=== PATIENT | female | born 1990 | race Caucasian/White ===

== ENCOUNTER 2019-01-27 06:29 | Emergency (ER) | payer BC ==
--- NOTE | 2019-01-27 06:39 | EDM.PDOC ---
ED HPI GENERAL MEDICAL PROBLEM - General Chief Complaint: ENT Problem Stated Complaint: SORE THROAT, FACIAL PAIN Time Seen by Provider: 01/27/19 06:37 - History of Present Illness INITIAL COMMENTS - FREE TEXT/NARRATIVE: HISTORY AND PHYSICAL: History of present illness: Patient's 28-year-old female presents with a concern of cough sore throat and ear pain or less of days she denies fever chills nausea or other complaints Review of systems: As per history of present illness and below otherwise all systems reviewed and negative. Past medical history: As per history of present illness and as reviewed below otherwise noncontributory. Surgical history: As per history of present illness and as reviewed below otherwise noncontributory. Social history: No reported history of drug or alcohol abuse. Family history: As per history of present illness and as reviewed below otherwise noncontributory. Physical exam: HEENT: Atraumatic, normocephalic, pupils reactive, negative for conjunctival pallor or scleral icterus, mucous membranes moist, throat injected with pustular exudates, neck supple, nontender, trachea midline. Lungs: Clear to auscultation, breath sounds equal bilaterally, chest nontender. Heart: S1S2, regular, negative for clicks, rubs, or JVD. Abdomen: Soft, nondistended, nontender. Negative for masses or hepatosplenomegaly. Negative for costovertebral tenderness. Pelvis: Stable nontender. Genitourinary: Deferred. Rectal: Deferred. Extremities: Atraumatic, negative for cords or calf pain. Neurovascular unremarkable. Neuro: Awake, alert, oriented. Cranial nerves II through XII unremarkable. Cerebellum unremarkable. Motor and sensory unremarkable throughout. Exam nonfocal. Diagnostics: None Therapeutics: None Impression: #1 exudative pharyngitis #2 otalgia Definitive disposition and diagnosis as appropriate pending reevaluation and review of above. throat Pain Score (Numeric/FACES): 6 bilateral ears Pain Score (Numeric/FACES): 6 ED ROS GENERAL - Review of Systems Review Of Systems: Comprehensive ROS is negative, except as noted in HPI. ED EXAM, GENERAL - Physical Exam Exam: See Below (See dictation) Course - Vital Signs Last Recorded V/S: Last Vital Signs Temp 35.8 C 01/27/19 06:30 Pulse 85 01/27/19 06:30 Resp 17 01/27/19 06:30 BP 125/80 01/27/19 06:30 Pulse Ox 97 01/27/19 06:30 Departure - Departure Time of Disposition: 06:38 Disposition: Home, Self-Care 01 Condition: Good Clinical Impression: Exudative pharyngitis, Otalgia - Discharge Information Referrals: PCP,None [Primary Care Provider] - Additional Instructions: The following information is given to patients seen in the emergency department who are being discharged to home. This information is to outline your options for follow-up care. We provide all patients seen in our emergency department with a follow-up referral. The need for follow-up, as well as the timing and circumstances, are variable depending upon the specifics of your emergency department visit. If you don't have a primary care physician on staff, we will provide you with a referral. We always advise you to contact your personal physician following an emergency department visit to inform them of the circumstance of the visit and for follow-up with them and/or the need for any referrals to a consulting specialist. The emergency department will also refer you to a specialist when appropriate. This referral assures that you have the opportunity for followup care with a specialist. All of these measure are taken in an effort to provide you with optimal care, which includes your followup. Under all circumstances we always encourage you to contact your private physician who remains a resource for coordinating your care. When calling for followup care, please make the office aware that this follow-up is from your recent emergency room visit. If for any reason you are refused follow-up, please contact the [facility] emergency department at and asked to speak to the emergency department charge nurse. Augmentin is prescribed Motrin/Tylenol attractive follow-up primary medical doctor return as needed as discussed
== END 2019-01-27 06:51 | disposition home or self-care (01) ==
LOC: MW.ED 06:29
DX: J02.9 Acute pharyngitis, unspecified (principal); H92.03 Otalgia, bilateral
CPT/HCPCS: 99283

== ENCOUNTER 2020-01-26 13:46 | Emergency (ER) | payer BC ==
[2020-01-26 15:24] LABS: BLOOD UREA NITROGEN,BUN 7 mg/dL (7.0-18.0); CARBON DIOXIDE,CO2 25.1 mmol/L (21.0-32.0); CHLORIDE,CL 103 mmol/L (98-107); GLUCOSE RANDOM 93 mg/dL (74-106); POTASSIUM,K 4.1 mmol/L (3.5-5.1); SODIUM,NA 140 mmol/L (136-145)
--- NOTE | 2020-01-26 15:34 | CR ---
TECHNIQUE: Portable AP chest radiograph. INDICATION: Chest pain, shortness of breath. COMPARISON: None available. FINDINGS: Mildly reduced lung volumes with vascular crowding. No focal pulmonary opacity, pneumothorax, or pleural effusion. Normal cardiac and mediastinal contours. IMPRESSION: No acute cardiopulmonary findings. Dictated by Salvatore Farias MD @ 01/26/2020 3:33:33 PM Dictated by: Salvatore Farias MD @ 01/26/2020 15:33:44 (Electronically Signed)
--- NOTE | 2020-01-26 15:34 | EDM.PDOC ---
ED HPI GENERAL MEDICAL PROBLEM - General Chief Complaint: Skin Complaint Stated Complaint: RASH ON LEGS AND ARMS Time Seen by Provider: 01/26/20 13:47 Source of Information: Reports: Patient History Limitations: Reports: No Limitations - History of Present Illness INITIAL COMMENTS - FREE TEXT/NARRATIVE: HISTORY AND PHYSICAL: History of present illness: Is a 29-year-old female who presents to the emergency room today with concern of rash to her bilateral lower extremities and upper extremities that began x2 days ago. Patient states she also has a slight sore throat and vague cough but states that the rash is more bothersome to her. Patient states that the rash is painful to the touch. Patient states that she is also having "cramping "sensations of her calves. Patient states she describes this as a hard workout when you strain your calf muscles during exercise. Patient denies any trauma or injury. Patient states that she did recently find out that her significant other was not faithful but does not believe to have a sexually transmitted infection. Patient denies any vaginal discharge or any vaginal sores. Denies any health history of family history of autoimmune concerns. She did have a COVID19 infection a few weeks ago. Patient denies fever, chills, chest pain, shortness of breath, or cough. Denies headache, neck stiff ness, change in vision, syncope, or near syncope. Denies nausea, vomiting, abdominal pain, diarrhea, constipation, or dysuria. Has not noted any blood in urine or stool. Patient has been eating and drinking appropriately. Review of systems: As per history of present illness and below otherwise all systems reviewed and negative. Past medical history: As per history of present illness and as reviewed below otherwise noncontrib utory. Surgical history: As per history of present illness and as reviewed below otherwise noncontributory. Social history: See social history for further information Family history: As per history of present illness and as reviewed below otherwise noncontributory. Physical exam: General: Patient is alert, oriented, and in no acute distress. Patient sitting comfortably on exam table. HEENT: Atraumatic, normocephalic, pupils equal and reactive bilaterally, negative for conjunctival pallor or scleral icterus, mucous membranes moist, TMs normal bilaterally, throat clear, uvula midline, neck supple, nontender, trachea midline. No drooling or trismus noted. No meningeal signs. No hot potato voice noted. Lungs: Clear to auscultation, breath sounds equal bilaterally, chest nontender. Heart: S1S2, regular rate and rhythm without overt murmur Abdomen: Soft, nondistended, nontender. Negative for masses or hepatosplenomegaly. Negative for costovertebral tenderness. Pelvis: Stable nontender. Genitourinary: Deferred. Rectal: Deferred. Skin: There are tender erythematous nodules that a firm, erythematous, painful, and warm to the touch on the bilateral lower extremities and forearms. This rash does involve the palmar aspect of the hands and feet. Otherwise, intact, warm, dry. No lesions or rashes noted. Extremities: Atraumatic, negative for cords or calf pain. Neurovascular unremarkable. Neuro: Awake, alert, oriented. Cranial nerves II through XII unremarkable. Cerebellum unremarkable. Motor and sensory unremarkable throughout. Exam nonfocal. Notes: Strict return precautions thoroughly discussed with patient. Signs and symptoms that would prompt return to the ED thoroughly discussed with patient. Discussed importance for follow-up with a primary care provider. Voices understanding and is agreeable to plan of care. Denies any further questions or concerns at this time. Diagnostics: CBC, CMP, UA, mono, strep, HIV, hepatitis panel, syphilis, Gonorrhea and chlamydia, HSV, lactate, Therapeutics: None Prescription: None Impression: Erythema nodosum Pharyngitis Plan: 1. Follow up with primary care provider as discussed. 2. Use ibuprofen as directed for pain and discomfort. You can also use Tylenol as directed for pain and discomfort. 3. Return to the ED as needed and as discussed. Definitive disposition and diagnosis as appropriate pending reevaluation and re view of above. Bilateral Lower Leg Pain Score (Numeric/FACES): 5 - Related Data Allergies Allergy/AdvReac Type Severity Reaction Status Date / Time No Known Allergies Allergy Verified 01/26/20 14:03 Home Meds: Home Meds . [No Known Home Meds] 01/27/19 [History] Past Medical History - Past Health History Medical/Surgical History: Denies Medical/Surgical History Gastrointestinal History: Reports: None Genitourinary History: Reports: None [employer] History: Reports: - Infectious Disease History Infectious Disease History: Reports: Chicken Pox - Past Surgical History GI Surgical History: Reports: Cholecystectomy Female Surgical History: Reports: Section Social & Family History - Family History Family Medical History: No Pertinent Family History - Tobacco Use Tobacco Use Status *Q: Never Tobacco User Second Hand Smoke Exposure: No - Caffeine Use Caffeine Use: Reports: None - Recreational Drug Use Recreational Drug Use: No ED ROS GENERAL - Review of Systems Review Of Systems: Comprehensive ROS is negative, except as noted in HPI. ED EXAM, SKIN/RASH Exam: See Below (see dictation) Course - Vital Signs Last Recorded V/S: Last Vital Signs Temp 97.9 F 01/26/20 16:33 Pulse 94 01/26/20 16:33 Resp 18 01/26/20 16:33 BP 105/69 01/26/20 16:33 Pulse Ox 98 01/26/20 16:33 - Orders/Labs/Meds Orders: Active Orders 24 hr Category Date Time Status CHLAMYDIA AND GONORRHEA BY TMA Stat Lab 01/26/20 14:28 Ordered CORONAVIRUS COVID-19 PCR PHL Stat Lab 01/26/20 14:29 Ordered CULTURE STREP A CONFIRMATION [RM] Stat Lab 01/26/20 15:15 Results HEPATITIS PANEL (4) [REF] Stat Lab 01/26/20 14:42 Received HSV, TYPES 1 & 2, IGM AB, IND [REF] Stat Lab 01/26/20 14:42 Received RPR (SYPHILIS SERO) W/ RFLX [REF] Stat Lab 01/26/20 14:42 Received STREP SCRN A RAPID W CULT CONF [RM] Stat Lab 01/26/20 15:15 Results TRICH/BRICE/CAND BY DNA PROBE [MOLEC] Stat Lab 01/26/20 14:29 Ordered Labs: Laboratory Tests 01/26/20 01/26/20 01/26/20 Range/Units 14:25 14:25 14:42 WBC 14.55 H (4.0-11.0) K/uL RBC 5.09 (4.30-5.90) M/uL Hgb 16.3 H (12.0-16.0) g/dL Hct 47.0 H (36.0-46.0) % MCV 92.3 (80.0-98.0) fL MCH 32.0 (27.0-32.0) pg MCHC 34.7 (31.0-37.0) g/dL RDW Std Deviation 45.1 (28.0-62.0) fl RDW Coeff of Khurram 13 (11.0-15.0) % Plt Count 295 (150-400) K/uL MPV 9.80 (7.40-12.00) fL Neut % (Auto) 70.1 (48.0-80.0) % Lymph % (Auto) 17.3 (16.0-40.0) % Maverick % (Auto) 11.1 (0.0-15.0) % Eos % (Auto) 1.2 (0.0-7.0) % Baso % (Auto) 0.3 (0.0-1.5) % Neut # (Auto) 10.2 H (1.4-5.7) K/uL Lymph # (Auto) 2.5 H (0.6-2.4) K/uL Maverick # (Auto) 1.6 H (0.0-0.8) K/uL Eos # (Auto) 0.2 (0.0-0.7) K/uL Baso # (Auto) 0.0 (0.0-0.1) K/uL Nucleated RBC % 0.0 /100WBC Nucleated RBCs # 0 K/uL Lactate (0.20-2.00) mmol/L Sodium (136-145) mmol/L Potassium (3.5-5.1) mmol/L Chloride (98-107) mmol/L Carbon Dioxide (21.0-32.0) mmol/L BUN (7.0-18.0) mg/dL Creatinine (0.6-1.0) mg/dL Est Cr Clr Drug Dosing mL/min Estimated GFR (MDRD) ml/min Glucose (74-106) mg/dL Calcium (8.5-10.1) mg/dL Total Bilirubin (0.2-1.0) mg/dL AST (15-37) IU/L ALT (14-63) IU/L Alkaline Phosphatase (46-116) U/L Creatine Kinase (26-308) U/L Total Protein (6.4-8.2) g/dL Albumin (3.4-5.0) g/dL Globulin (2.6-4.0) g/dL Albumin/Globulin Ratio (0.9-1.6) Urine Color YELLOW Urine Appearance CLEAR Urine pH 7.5 (5.0-8.0) Ur Specific Julian 1.025 (1.001-1.035) Urine Protein NEGATIVE (NEGATIVE) mg/dL Urine Glucose (UA) NEGATIVE (NEGATIVE) mg/dL Urine Ketones NEGATIVE (NEGATIVE) mg/dL Urine Occult Blood NEGATIVE (NEGATIVE) Urine Nitrite NEGATIVE (NEGATIVE) Urine Bilirubin NEGATIVE (NEGATIVE) Urine Urobilinogen 0.2 (<2.0) EU/dL Ur Leukocyte Esterase NEGATIVE (NEGATIVE) Urine HCG, Qual NEGATIVE (NEGATIVE) Monoscreen (NEG) HIV 1&2 Ag/Ab, 4th Gen (<1.0) INDEX 01/26/20 01/26/20 01/26/20 Range/Units 14:42 14:42 14:42 WBC (4.0-11.0) K/uL RBC (4.30-5.90) M/uL Hgb (12.0-16.0) g/dL Hct (36.0-46.0) % MCV (80.0-98.0) fL MCH (27.0-32.0) pg MCHC (31.0-37.0) g/dL RDW Std Deviation (28.0-62.0) fl RDW Coeff of Khurram (11.0-15.0) % Plt Count (150-400) K/uL MPV (7.40-12.00) fL Neut % (Auto) (48.0-80.0) % Lymph % (Auto) (16.0-40.0) % Maverick % (Auto) (0.0-15.0) % Eos % (Auto) (0.0-7.0) % Baso % (Auto) (0.0-1.5) % Neut # (Auto) (1.4-5.7) K/uL Lymph # (Auto) (0.6-2.4) K/uL Maverick # (Auto) (0.0-0.8) K/uL Eos # (Auto) (0.0-0.7) K/uL Baso # (Auto) (0.0-0.1) K/uL Nucleated RBC % /100WBC Nucleated RBCs # K/uL Lactate (0.20-2.00) mmol/L Sodium 140 (136-145) mmol/L Potassium 4.1 (3.5-5.1) mmol/L Chloride 103 (98-107) mmol/L Carbon Dioxide 25.1 (21.0-32.0) mmol/L BUN 7 (7.0-18.0) mg/dL Creatinine 0.7 (0.6-1.0) mg/dL Est Cr Clr Drug Dosing 105.74 mL/min Estimated GFR (MDRD) > 60.0 ml/min Glucose 93 (74-106) mg/dL Calcium 8.9 (8.5-10.1) mg/dL Total Bilirubin 0.4 (0.2-1.0) mg/dL AST 18 (15-37) IU/L ALT 39 (14-63) IU/L Alkaline Phosphatase 80 (46-116) U/L Creatine Kinase 78 (26-308) U/L Total Protein 7.8 (6.4-8.2) g/dL Albumin 3.5 (3.4-5.0) g/dL Globulin 4.3 H (2.6-4.0) g/dL Albumin/Globulin Ratio 0.8 L (0.9-1.6) Urine Color Urine Appearance Urine pH (5.0-8.0) Ur Specific Julian (1.001-1.035) Urine Protein (NEGATIVE) mg/dL Urine Glucose (UA) (NEGATIVE) mg/dL Urine Ketones (NEGATIVE) mg/dL Urine Occult Blood (NEGATIVE) Urine Nitrite (NEGATIVE) Urine Bilirubin (NEGATIVE) Urine Urobilinogen (<2.0) EU/dL Ur Leukocyte Esterase (NEGATIVE) Urine HCG, Qual (NEGATIVE) Monoscreen NEGATIVE (NEG) HIV 1&2 Ag/Ab, 4th Gen 0.2 (<1.0) INDEX 01/26/20 Range/Units 15:52 WBC (4.0-11.0) K/uL RBC (4.30-5.90) M/uL Hgb (12.0-16.0) g/dL Hct (36.0-46.0) % MCV (80.0-98.0) fL MCH (27.0-32.0) pg MCHC (31.0-37.0) g/dL RDW Std Deviation (28.0-62.0) fl RDW Coeff of Khurram (11.0-15.0) % Plt Count (150-400) K/uL MPV (7.40-12.00) fL Neut % (Auto) (48.0-80.0) % Lymph % (Auto) (16.0-40.0) % Maverick % (Auto) (0.0-15.0) % Eos % (Auto) (0.0-7.0) % Baso % (Auto) (0.0-1.5) % Neut # (Auto) (1.4-5.7) K/uL Lymph # (Auto) (0.6-2.4) K/uL Maverick # (Auto) (0.0-0.8) K/uL Eos # (Auto) (0.0-0.7) K/uL Baso # (Auto) (0.0-0.1) K/uL Nucleated RBC % /100WBC Nucleated RBCs # K/uL Lactate 1.3 (0.20-2.00) mmol/L Sodium (136-145) mmol/L Potassium (3.5-5.1) mmol/L Chloride (98-107) mmol/L Carbon Dioxide (21.0-32.0) mmol/L BUN (7.0-18.0) mg/dL Creatinine (0.6-1.0) mg/dL Est Cr Clr Drug Dosing mL/min Estimated GFR (MDRD) ml/min Glucose (74-106) mg/dL Calcium (8.5-10.1) mg/dL Total Bilirubin (0.2-1.0) mg/dL AST (15-37) IU/L ALT (14-63) IU/L Alkaline Phosphatase (46-116) U/L Creatine Kinase (26-308) U/L Total Protein (6.4-8.2) g/dL Albumin (3.4-5.0) g/dL Globulin (2.6-4.0) g/dL Albumin/Globulin Ratio (0.9-1.6) Urine Color Urine Appearance Urine pH (5.0-8.0) Ur Specific Julian (1.001-1.035) Urine Protein (NEGATIVE) mg/dL Urine Glucose (UA) (NEGATIVE) mg/dL Urine Ketones (NEGATIVE) mg/dL Urine Occult Blood (NEGATIVE) Urine Nitrite (NEGATIVE) Urine Bilirubin (NEGATIVE) Urine Urobilinogen (<2.0) EU/dL Ur Leukocyte Esterase (NEGATIVE) Urine HCG, Qual (NEGATIVE) Monoscreen (NEG) HIV 1&2 Ag/Ab, 4th Gen (<1.0) INDEX Departure - Departure Time of Disposition: 16:09 Disposition: Home, Self-Care 01 Clinical Impression: Erythema nodosum Pharyngitis Qualifiers: Pharyngitis/tonsillitis etiology: unspecified etiology Qualified Code(s): J02.9 - Acute pharyngitis, unspecified - Discharge Information Instructions: Erythema Nodosum, Pharyngitis, [id number] Referrals: PCP,None [Primary Care Provider] - Forms: ED Department Discharge Additional Instructions: The following information is given to patients seen in the emergency department who are being discharged to home. This information is to outline your options for follow-up care. We provide all patients seen in our emergency department with a follow-up referral. The need for follow-up, as well as the timing and circumstances, are variable depending upon the specifics of your emergency department visit. If you don't have a primary care physician on staff, we will provide you with a referral. We always advise you to contact your personal physician following an emergency department visit to inform them of the circumstance of the visit and for follow-up with them and/or the need for any referrals to a consulting specialist. The emergency department will also refer you to a specialist when appropriate. This referral assures that you have the opportunity for follow-up care with a specialist. All of these measure are taken in an effort to provide you with optimal care, which includes your follow-up. Under all circumstances we always encourage you to contact your private physician who remains a resource for coordinating your care. When calling for follow-up care, please make the office aware that this follow-up is from your recent emergency room visit. If for any reason you are refused follow-up, please contact the [facility] Emergency Department at and asked to speak to the emergency department charge nurse. [facility] [address] [place] [id number] [id number] 1. Follow up with primary care provider as discussed. 2. Use ibuprofen as directed for pain and discomfort. You can also use Tylenol as directed for pain and discomfort. 3. Return to the ED as needed and as discussed. Sepsis Event Note (ED) - Evaluation Sepsis Screening Result: No Definite Risk - Focused Exam Vital Signs: Vital Signs Temp Pulse Resp BP Pulse Ox 01/26/20 16:33 97.9 F 94 18 105/69 98 01/26/20 13:57 97.9 F 99 18 114/72 98 - My Orders Last 24 Hours: My Active Orders 01/26/20 14:28 CHLAMYDIA AND GONORRHEA BY TMA Stat 01/26/20 14:29 CORONAVIRUS COVID-19 PCR PHL Stat TRICH/BRICE/CAND BY DNA PROBE [MOLEC] Stat 01/26/20 14:42 HEPATITIS PANEL (4) [REF] Stat HSV, TYPES 1 & 2, IGM AB, IND [REF] Stat RPR (SYPHILIS SERO) W/ RFLX [REF] Stat 01/26/20 15:15 CULTURE STREP A CONFIRMATION [RM] Stat STREP SCRN A RAPID W CULT CONF [RM] Stat - Assessment/Plan Last 24 Hours: My Active Orders 01/26/20 14:28 CHLAMYDIA AND GONORRHEA BY TMA Stat 01/26/20 14:29 CORONAVIRUS COVID-19 PCR PHL Stat TRICH/BRICE/CAND BY DNA PROBE [MOLEC] Stat 01/26/20 14:42 HEPATITIS PANEL (4) [REF] Stat HSV, TYPES 1 & 2, IGM AB, IND [REF] Stat RPR (SYPHILIS SERO) W/ RFLX [REF] Stat 01/26/20 15:15 CULTURE STREP A CONFIRMATION [RM] Stat STREP SCRN A RAPID W CULT CONF [RM] Stat
== END 2020-01-26 16:30 | disposition home or self-care (01) ==
LOC: MW.ED 13:46
DX: L52 Erythema nodosum (principal); J02.9 Acute pharyngitis, unspecified
CPT/HCPCS: 36415; 71045; 71045-26; 80053; 80074; 81003; 81025; 82550; 83605; 85025; 86308; 86592; 86695; 86696; 87081; 87389; 87880-QW; 99283; 99283-25

== ENCOUNTER 2021-01-26 13:32 | Emergency (ER) | payer BC ==
[2021-01-26] MEDS ORDERED: Ketorolac 60 MG/2 ML SDV IM ONE (13:57)
--- NOTE | 2021-01-26 14:02 | EDM.PDOC ---
ED HPI GENERAL MEDICAL PROBLEM - General Chief Complaint: ENT Problem Stated Complaint: LEFT EAR PAIN Time Seen by Provider: 01/26/21 13:42 Source of Information: Reports: Patient History Limitations: Reports: No Limitations - History of Present Illness INITIAL COMMENTS - FREE TEXT/NARRATIVE: HISTORY AND PHYSICAL: History of present illness: The patient is a 30-year-old female who presents to the emergency department with complaints of left ear pain that started yesterday in the morning. Patient states that she took 1000 mg of Tylenol and was able to work yesterday. She stated this morning she got up again with ear pain and took 1000 mg of Tylenol at 830 and at 1230. The patient states this did not touch her ear pain. Patient has not had any fever but however she has had significant sinus drainage and sinus pressure for the last week. Patient has been sneezing and associates this with her allergies. Patient denies any fever, chills, headache, change in vision, syncope or near syncope. Denies any chest pain, back pain, shortness of breath or cough. Denies any abdominal pain, nausea, vomiting, diarrhea, constipation or dysuria. Has not noted any blood in urine or stool. Patient has been eating and drinking appropriately. Review of systems: As per history of present illness and below otherwise all systems reviewed and negative. Past medical history: As per history of present illness and as reviewed below otherwise noncontributory. Surgical history: As per history of present illness and as reviewed below otherwise noncontributory. Social history: See social history for further information Family history: As per history of present illness and as reviewed below otherwise noncontributory. Physical exam: General: Well developed and well nourished. Alert and orientated x 3. Nontoxic in appearance and in no acute distress. Vital signs are stable and have been reviewed by me. Nursing notes were reviewed. HEENT: Atraumatic, normocephalic, pupils equal and reactive bilaterally, negative for conjunctival pallor or scleral icterus, mucous membranes moist, TM white and bulging, left TM red and white with bulging, throat clear, neck supple, nontender, trachea midline. No drooling or trismus noted. No meningeal signs. No hot potato voice noted. Lungs: Clear to auscultation bilaterally. No wheezes, rales, or rhonchi. Chest nontender. Normal work of breathing, no accessory muscles used. Heart: S1S2, regular rate and rhythm without overt murmur, gallops, or rubs. No JVD. No peripheral edema Abdomen: Soft, nondistended, nontender. Normoactive bowel sounds. Negative for masses or costovertebral tenderness. Skin: Intact, warm, dry. No lesions or rashes noted. Hematologic: No petechiae or purpra. Mucosa appropriate color and normal nail bed color and refill. Extremities: Atraumatic, moves all extremities per self without difficulty or deficits, negative for cords or calf pain. Neurovascular unremarkable. Neuro: Awake, alert, oriented. Cranial nerves II through XII unremarkable. Cerebellum unremarkable. Motor and sensory unremarkable throughout. Exam nonfocal. Psychiatric: Mood and affect are appropriate. Normal thought process. Answering questions appropriately. Notes: *This patient was seen and evaluated during the 2019 SARS-CoV-2 novel coronavirus pandemic period. Community viral transmission is ongoing at time of this encounter and the emergency department is operating under pandemic response procedures. As stated above the patient is a 30-year-old who presents to the emergency with left ear pain. Patient was able to control the pain yesterday with gauze and milligrams of Tylenol but after 2 doses today she was unable to control the pain. The patient has some scarring on her tympanic membranes from frequent ear infections when she was younger. Based upon her exam I will treat her ear infection with Augmentin 875/125 mg p.o. twice daily for 7 days. We will treat her discomfort with Toradol 60 mg in the emergency department the patient is agreeable with this discharge plan. I have talked with the patient about today's findings, in addition to providing specific details for plan of care. Reassessment at the time of disposition demonstrates that the patient is in no acute distress. The patient is stable for discharge, counseling was provided and we discussed in great detail signs and symptoms that would prompt them to return to the Emergency Department. Medication, follow up and supportive care measures were reviewed and discussed. Voices understanding and is agreeable to plan of care. Denies any further questions or concerns at this time. Therapeutics: Toradol 60 mg Prescription:Augmentin 875/125 mg by mouth twice a day for 7 days Impression: Left otitis media Plan: 1. You were evaluated today on an emergent basis. Your plaints of left ear pain was evaluated with an exam and found to be an ear infection. I am treating this with Augmentin 875/125 mg by mouth twice a day for 7 days. I have sent this to and pharmacy. I would follow-up with your primary care as needed to ensure that the ear infection has resolved. You can use Motrin 600 to 800 mg every 6-8 hours as needed for pain with a maximum dose of 3200mg per day. 2. You can alternate Tylenol and ibuprofen as needed for pain and fever management. 3. We encourage you to follow up with your primary care provider and/or recommended specialist in the next few days for re-evaluation and further care/management. 4. If your symptoms should worsen, new symptoms develop or any of the signs and symptoms we discussed should arise please return to the emergency room or call 911 (if needed). Definitive disposition and diagnosis as appropriate pending reevaluation and review of above. Left Face/Facial Pain Score (Numeric/FACES): 9 - Related Data Allergies Allergy/AdvReac Type Severity Reaction Status Date / Time No Known Allergies Allergy Verified 01/26/21 13:46 Home Meds: Home Meds Amoxicillin/Potassium Clav [Augmentin 875-125 Tablet] 1 each PO BID 7 Days #14 tablet 01/26/21 [Rx] Past Medical History - Past Health History Medical/Surgical History: Denies Medical/Surgical History Gastrointestinal History: Reports: None Genitourinary History: Reports: None [employer] History: Reports: Immunologic History: Reports: Other (See Below) - Infectious Disease History Infectious Disease History: Reports: Chicken Pox, Novel Coronavirus - Past Surgical History HEENT Surgical History: Reports: Myringotomy w Tube(s) Other HEENT Surgeries/Procedures: Pt states that tube in right ear had to be surgically removed GI Surgical History: Reports: Cholecystectomy Female Surgical History: Reports: Section Social & Family History - Family History Family Medical History: No Pertinent Family History - Tobacco Use Tobacco Use Status *Q: Current Every Day Tobacco User Years of Tobacco use: 10 Packs/Tins Daily: 1 - Caffeine Use Caffeine Use: Reports: Coffee - Recreational Drug Use Recreational Drug Use: No ED ROS ENT - Review of Systems Review Of Systems: Comprehensive ROS is negative, except as noted in HPI. ED EXAM, ENT - Physical Exam Exam: See Below (See dictation) Course - Vital Signs Last Recorded V/S: Last Vital Signs Temp 97.2 F 01/26/21 13:41 Pulse 88 01/26/21 14:12 Resp 18 01/26/21 14:12 BP 117/77 01/26/21 14:12 Pulse Ox 95 01/26/21 14:12 - Orders/Labs/Meds Meds: Medications Discontinued Medications Generic Name Dose Route Start Last Admin Trade Name Freq PRN Reason Stop Dose Admin Ketorolac Tromethamine 60 mg 01/26/21 13:57 01/26/21 14:08 Ketorolac 60 Mg/2 Ml Sdv IM 01/26/21 13:58 60 mg ONETIME ONE Administration Departure - Departure Time of Disposition: 14:01 Disposition: Home, Self-Care 01 Condition: Good Clinical Impression: Otitis media - Discharge Information Prescriptions: Amoxicillin/Potassium Clav [Augmentin 875-125 Tablet] 1 each PO BID 7 Days #14 tablet Instructions: Otitis Media, Adult, [id number] Referrals: PCP,None [Primary Care Provider] - Forms: ED Department Discharge Additional Instructions: The following information is given to patients seen in the emergency department who are being discharged to home. This information is to outline your options for follow-up care. We provide all patients seen in our emergency department with a follow-up referral. The need for follow-up, as well as the timing and circumstances, are variable depending upon the specifics of your emergency department visit. If you don't have a primary care physician on staff, we will provide you with a referral. We always advise you to contact your personal physician following an emergency department visit to inform them of the circumstance of the visit and for follow-up with them and/or the need for any referrals to a consulting specialist. The emergency department will also refer you to a specialist when appropriate. This referral assures that you have the opportunity for follow-up care with a specialist. All of these measure are taken in an effort to provide you with optimal care, which includes your follow-up. Under all circumstances we always encourage you to contact your private physician who remains a resource for coordinating your care. When calling for follow-up care, please make the office aware that this follow-up is from your recent emergency room visit. If for any reason you are refused follow-up, please contact the [facility] Emergency Department at and asked to speak to the emergency department charge nurse. [facility] [address] [place] [address] [facility] [address] [place] [address] Plan: 1. You were evaluated today on an emergent basis. Your plaints of left ear pain was evaluated with an exam and found to be an ear infection. I am treating this with Augmentin 875/125 mg by mouth twice a day for 7 days. I have sent this to and pharmacy. I would follow-up with your primary care as needed to ensure that the ear infection has resolved. You can use Motrin 600 to 800 mg every 6-8 hours as needed for pain with a maximum dose of 3200mg per day. 2. You can alternate Tylenol and ibuprofen as needed for pain and fever management. 3. We encourage you to follow up with your primary care provider and/or recommended specialist in the next few days for re-evaluation and further care/management. 4. If your symptoms should worsen, new symptoms develop or any of the signs and symptoms we discussed should arise please return to the emergency room or call 911 (if needed). Sepsis Event Note (ED) - Evaluation Sepsis Screening Result: No Definite Risk - Focused Exam Vital Signs: Vital Signs Temp Pulse Resp BP Pulse Ox 01/26/21 14:12 88 18 117/77 95 01/26/21 13:41 97.2 F 87 18 110/74 96
== END 2021-01-26 14:13 | disposition home or self-care (01) ==
LOC: MW.ED 13:32
DX: H66.92 Otitis media, unspecified, left ear (principal); Z86.16 Personal history of COVID-19; Z72.0 Tobacco use
CPT/HCPCS: 96372; 99282; J1885

== ENCOUNTER 2021-06-19 13:40 | Emergency (ER) | payer BC ==
[2021-06-19 15:17] LABS: BLOOD UREA NITROGEN,BUN 9 mg/dL (7.0-18.0); CARBON DIOXIDE,CO2 22.2 mmol/L (21.0-32.0); CHLORIDE,CL 104 mmol/L (98-107); GLUCOSE RANDOM 91 mg/dL (74-106); LIPASE 82 U/L (73-393); SODIUM,NA 138 mmol/L (136-145)
== END 2021-06-19 15:52 | disposition home or self-care (01) ==
LOC: MW.ED 13:40
DX: R10.31 Right lower quadrant pain (principal); I88.0 Nonspecific mesenteric lymphadenitis; Z86.16 Personal history of COVID-19; Z90.49 Acquired absence of other specified parts of digestive tract
CPT/HCPCS: 36415; 80053; 81003; 81025; 83690; 85025; 99283; 99284

== ENCOUNTER 2021-08-27 17:07 | Emergency (ER) | payer BC ==
[2021-08-27] MEDS ORDERED: Acetaminophen 325 MG Tab PO ONE (17:29)
[2021-08-27] MEDS ORDERED: Ibuprofen 600 MG Tab PO ONE (17:29)
[2021-08-27] MEDS ORDERED: Sodium Chloride 0.9% 10 ML Syringe FLUSH PRN ×2 (17:45→18:43)
[2021-08-27] MEDS ORDERED: Sodium Chloride 0.9% 2.5 ML Syringe FLUSH PRN ×2 (17:45→18:43)
[2021-08-27] MEDS ORDERED: Sodium Chloride 0.9% 1,000 ML IV ONE (17:45)
[2021-08-27] MEDS ORDERED: Ketorolac 30 MG/ML SDV IVPUSH ONE (17:46)
[2021-08-27] MEDS ORDERED: cefTRIAXone 2 GM in Sodium Chloride 0.9% 100 ML IV ONE (18:13)
[2021-08-27] MEDS ORDERED: cefTRIAXone 1 GM in Sodium Chloride 0.9% 50 ML IV ONE ×2 (18:40→18:41)
[2021-08-27 19:25] LABS: POTASSIUM,K 3.6 mmol/L (3.5-5.1)
== END 2021-08-27 20:24 | disposition home or self-care (01) ==
LOC: MW.ED 17:07
DX: N39.0 Urinary tract infection, site not specified (principal); Z20.822 Contact with and (suspected) exposure to COVID-19
CPT/HCPCS: 36415; 71046; 74176; 80053; 81001; 81025; 83605; 85025; 87040; 87086; 87088; 87186; 87635; 87651; 96361; 96365; 96375; 99284; A9270; J0696; J1885; J7030; U0002

== ENCOUNTER 2021-10-17 12:38 | Emergency (ER) | payer BC ==
[2021-10-17 14:07] LABS: CARBON DIOXIDE,CO2 24.5 mmol/L (21.0-32.0); POTASSIUM,K 4.1 mmol/L (3.5-5.1)
== END 2021-10-17 16:05 | disposition home or self-care (01) ==
LOC: MW.ED 12:38
DX: K59.00 Constipation, unspecified (principal); E03.9 Hypothyroidism, unspecified; Z79.899 Other long term (current) drug therapy; Z86.16 Personal history of COVID-19
CPT/HCPCS: 36415; 74176; 74176-26; 80053; 81003; 83690; 84703; 85025; 99283; 99284

== ENCOUNTER 2022-08-01 14:23 | Observation (INO) | payer OTHER ==
[2022-08-01] MEDS ORDERED: Sodium Chloride 0.9% 2.5 ML Syringe FLUSH PRN (14:27)
[2022-08-01] MEDS ORDERED: Sodium Chloride 0.9% 1,000 ML IV ONE (14:27)
[2022-08-01] MEDS ORDERED: Ondansetron 4 MG/2 ML SDV IVPUSH ONE (14:27)
[2022-08-01] MEDS ORDERED: Sodium Chloride 0.9% 10 ML Syringe FLUSH PRN (14:27)
[2022-08-01] MEDS ORDERED: fentaNYL 50 MCG/ML SDV IVPUSH ONE (14:27)
[2022-08-01] MEDS ORDERED: fentaNYL 100 MCG/2 ML SDV ONE (14:28)
[2022-08-01] MEDS ORDERED: Diphtheria,Pertussis(Acell),Tetanus Vaccine 0.5 ML Syringe IM ONE (14:28)
[2022-08-01] MEDS ORDERED: Ondansetron 4 MG/2 ML SDV ONE (14:28)
[2022-08-01] MEDS ORDERED: Bacitracin Oint 1 GM U/D Packet TOP ONE (14:30)
[2022-08-01 14:35] LABS: BASOPHILS PERCENT AUTO 0.1 % (0.0-1.5); EOSINOPHILS ABSOLUTE AUTO 0.2 K/uL (0.0-0.7); EOSINOPHILS PERCENT AUTO 1.1 % (0.0-7.0); HEMATOCRIT 44.8 % (36.0-46.0); HEMOGLOBIN 15.9 g/dL (12.0-16.0); LYMPHOCYTES ABSOLUTE AUTO 2.1 K/uL (0.6-2.4); LYMPHOCYTES PERCENT AUTO 14.4 % (16.0-40.0); MEAN CORPUSCULAR HEMOGLOBIN 32.8 pg (27.0-32.0); MEAN CORPUSCULAR HGB CONC 35.5 g/dL (31.0-37.0); MEAN CORPUSCULAR VOLUME 92.4 fL (80.0-98.0); MONOCYTES PERCENT AUTO 6.7 % (0.0-15.0); NEUTROPHILS ABSOLUTE AUTO 11.1 K/uL (1.4-5.7); NEUTROPHILS PERCENT AUTO 77.7 % (48.0-80.0); NRBC ABSOLUTE 0 K/uL; PLATELET COUNT,PLT 267 K/uL (150-400); RED BLOOD CELL COUNT 4.85 M/uL (4.30-5.90); WHITE BLOOD CELL COUNT,WBC 14.26 K/uL (4.0-11.0)
[2022-08-01 14:55] LABS: ALANINE AMINOTRANSFERASE,ALT 38 IU/L (14-63); ALBUMIN 3.7 g/dL (3.4-5.0); ALKALINE PHOSPHATASE 60 U/L (46-116); ASPARTATE AMNIOTRANSFERASE,AST 37 IU/L (15-37); BILIRUBIN TOTAL 0.6 mg/dL (0.2-1.0); BLOOD UREA NITROGEN,BUN 9 mg/dL (7.0-18.0); CALCIUM 8.7 mg/dL (8.5-10.1); CARBON DIOXIDE,CO2 21.7 mmol/L (21.0-32.0); CHLORIDE,CL 100 mmol/L (98-107); CREATININE 0.7 mg/dL (0.6-1.0); GLUCOSE RANDOM 101 mg/dL (74-106); LIPASE 63 U/L (73-393); MAGNESIUM 1.6 mg/dL (1.8-2.4); POTASSIUM,K 4.4 mmol/L (3.5-5.1); PROTEIN TOTAL,TP 7.3 g/dL (6.4-8.2); SODIUM,NA 135 mmol/L (136-145)
[2022-08-01] MEDS ORDERED: Bacitracin Oint 28.35 GM Tube TOP STA (14:57)
[2022-08-01 14:58] LABS: ESTIMATED GFR 118 mL/min (>60); ETHANOL BLOOD MEDICAL < 3.0 mg/dL
[2022-08-01] MEDS ORDERED: Iopamidol 755 MG/ML 500 ML Multipack Bottle IVPUSH STA (15:11)
[2022-08-01] MEDS ORDERED: HYDROmorphone 1 MG/ML Syringe IVPUSH ONE ×2 (15:42→17:09)
[2022-08-01] MEDS ORDERED: Ketorolac 30 MG/ML SDV IVPUSH ONE (17:09)
[2022-08-01] MEDS ORDERED: Acetaminophen 1,000 MG in Premix Bag 1 BAG IV PRN (18:09)
[2022-08-01] MEDS ORDERED: Ondansetron 4 MG/2 ML SDV IVPUSH PRN (18:09)
[2022-08-01] MEDS ORDERED: Cyclobenzaprine 5 MG Tab PO PRN (18:09)
[2022-08-01] MEDS ORDERED: HYDROmorphone 2 MG/ML Syringe IVPUSH PRN (18:09)
[2022-08-01] MEDS: Lactated Ringers 1,000 ML IV SCH (18:57)
[2022-08-01] MEDS: Acetaminophen 1,000 MG in Premix Bag 1 BAG IV SCH (19:14)
[2022-08-01] MEDS: oxyCODONE 5 MG Tab PO PRN (20:39)
[2022-08-01] MEDS: Bacitracin/Neomycin/Polymyxin B Oint 28.4 GM Tube TOP SCH (21:59)
[2022-08-01 23:18] LABS: APPEARANCE,URINE CLEAR; BILIRUBIN,URINE NEGATIVE (NEGATIVE); COLOR,URINE YELLOW; GLUCOSE,URINE NEGATIVE (NEGATIVE); KETONES,URINE 15 mg/dL (NEGATIVE); LEUKOCYTE ESTERASE,URINE NEGATIVE (NEGATIVE); NITRITE,URINE NEGATIVE (NEGATIVE); OCCULT BLOOD,URINE NEGATIVE (NEGATIVE); PH,URINE 5.5 (5.0-8.0); PROTEIN,URINE TRACE mg/dL (NEGATIVE); UROBILINOGEN,URINE 0.2 EU/dL (<2.0)
[2022-08-01 23:28] LABS: AMPHETAMINES SCREEN, URINE PRESUMPTIVE POSITIVE (CUTOFF=500); BARBITURATE SCREEN,URINE NEGATIVE (CUTOFF=200); BENZODIAZEPINES SCREEN,URINE NEGATIVE (CUTOFF=150); BUPRENORPHINE SCREEN,URINE NEGATIVE (CUTOFF=10); METHADONE SCREEN, URINE NEGATIVE (CUTOFF=200); METHAMPHETAMINES SCREEN, URINE NEGATIVE (CUTOFF=500); OXYCODONE SCREEN,URINE NEGATIVE (CUT0FF=100); PCP SCREEN,URINE NEGATIVE (CUTOFF=25); PROPOXYPHENE SCREEN,URINE NEGATIVE (CUTOFF=300); THC SCREEN,URINE 20 NG/ML NEGATIVE (CUTOFF=50)
[2022-08-01 23:32] LABS: BACTERIA,URINE RARE (NEGATIVE); EPITHELIAL CELLS,URINE RARE (NONE-FEW); RBC,URINE 0-1 (0-2/HPF); WBC,URINE 0-2 (0-5/HPF)
[2022-08-02] MEDS: Acetaminophen 1,000 MG in Premix Bag 1 BAG IV SCH ×2 (00:35→06:02)
[2022-08-02] MEDS: oxyCODONE 5 MG Tab PO PRN ×2 (03:01→07:03)
[2022-08-02] MEDS: Omeprazole 20 MG Cap.CR PO SCH ×2 (06:03→06:31)
[2022-08-02] MEDS: Bacitracin/Neomycin/Polymyxin B Oint 28.4 GM Tube TOP SCH (06:50)
[2022-08-02] MEDS: Lactated Ringers 1,000 ML IV SCH (08:49)
== END 2022-08-02 10:00 | disposition home or self-care (01) ==
LOC: MW.ED 14:23 → MW.MS 17:44
PROVIDERS: ADMIT Surgery; ATTEND Surgery
DX: S27.0XXA Traumatic pneumothorax, initial encounter (principal); S42.021A Displaced fracture of shaft of right clavicle, initial encounter for closed fracture; S22.41XA Multiple fractures of ribs, right side, initial encounter for closed fracture; M51.87 Other intervertebral disc disorders, lumbosacral region; F17.210 Nicotine dependence, cigarettes, uncomplicated; E03.9 Hypothyroidism, unspecified; J98.11 Atelectasis; Z79.899 Other long term (current) drug therapy; Z90.49 Acquired absence of other specified parts of digestive tract; Z86.16 Personal history of COVID-19; Z79.890 Hormone replacement therapy; Z98.890 Other specified postprocedural states; V89.2XXA Person injured in unspecified motor-vehicle accident, traffic, initial encounter
CPT/HCPCS: 36415; 70450; 71046; 71260; 72125; 73000; 73030; 73060; 74177; 80053; 80305; 80307; 81001; 81025; 83690; 83735; 84484; 84703; 85025; 90715; 93005; A9270; J0131; J1170; J1885; J2405; J3010; J3490; J7030; J7120; Q9967; 72128-26; 72131-26

== ENCOUNTER 2022-08-26 06:36 | Day surgery (SDC) | payer OTHER ==
[2022-08-26] MEDS: Lactated Ringers 1,000 ML IV SCH (06:55)
[2022-08-26] MEDS: Scopolamine 1.5 MG Transdermal Patch TOP ONE (07:00)
[2022-08-26] MEDS ORDERED: Propofol 200 MG/20 ML SDV ONE ×2 (07:06→10:16)
[2022-08-26] MEDS ORDERED: Dexamethasone 4 MG/ML 5 ML MDV ONE (07:07)
[2022-08-26] MEDS ORDERED: Dexmedetomidine 200 MCG/2 ML SDV ONE (07:07)
[2022-08-26] MEDS ORDERED: fentaNYL 100 MCG/2 ML SDV ONE (07:07)
[2022-08-26] MEDS ORDERED: Lidocaine 2% 5 ML SDV ONE (07:07)
[2022-08-26] MEDS ORDERED: Water For Injection, Sterile 20 ML ONE (07:07)
[2022-08-26] MEDS ORDERED: Rocuronium Bromide 50 MG/5 ML Syringe ONE (07:07)
[2022-08-26] MEDS ORDERED: Ondansetron 4 MG/2 ML SDV ONE (07:07)
[2022-08-26] MEDS ORDERED: Ropivacaine 0.5% 5 MG/ML 30 ML SDV ONE (07:07)
[2022-08-26] MEDS ORDERED: Midazolam 1 MG/ML 2 ML SDV ONE (07:31)
[2022-08-26] MEDS ORDERED: Bupivacaine 25%/EPINEPHrine/PF 30 ML ONE (07:32)
[2022-08-26] MEDS ORDERED: ceFAZolin 2 GM in Sodium Chloride 0.9% 50 ML IV ONE (08:00)
[2022-08-26] MEDS ORDERED: Phenylephrine HCl 0.5 MG/5 ML AMP ONE (08:11)
[2022-08-26] MEDS ORDERED: Phenylephrine 1% 10 MG/ML SDV ONE (08:35)
[2022-08-26] MEDS ORDERED: ceFAZolin 2 GM Vial ONE (08:39)
[2022-08-26] MEDS ORDERED: HYDROmorphone 1 MG/ML Syringe IVPUSH PRN (08:58)
[2022-08-26] MEDS ORDERED: Ondansetron 4 MG/2 ML SDV IVPUSH PRN (08:58)
[2022-08-26] MEDS ORDERED: Morphine 2 MG/ML SYRINGE IVPUSH PRN (08:58)
[2022-08-26] MEDS ORDERED: Metoclopramide 10 MG/2 ML SDV IVPUSH PRN (08:58)
[2022-08-26] MEDS ORDERED: Naloxone 0.4 MG/ML SDV IVPUSH PRN (08:58)
[2022-08-26] MEDS ORDERED: droPERidol 5 MG/2 ML SDV IVPUSH PRN (08:58)
[2022-08-26] MEDS ORDERED: fentaNYL 50 MCG/ML SDV IVPUSH PRN (08:58)
[2022-08-26] MEDS ORDERED: Albuterol 0.083% 2.5 MG/3 ML Neb Soln NEB PRN (08:58)
[2022-08-26] MEDS ORDERED: Ketorolac 30 MG/ML SDV ONE (10:17)
[2022-08-26] MEDS ORDERED: Sugammadex Sodium 200 MG/2 ML VIAL ONE (10:17)
== END 2022-08-26 13:25 | disposition home or self-care (01) ==
LOC: MW.SDS 06:36
PROVIDERS: ATTEND Orthopaedic Surgery
DX: S42.001A Fracture of unspecified part of right clavicle, initial encounter for closed fracture (principal); E03.9 Hypothyroidism, unspecified; N39.0 Urinary tract infection, site not specified; F17.210 Nicotine dependence, cigarettes, uncomplicated; Z86.16 Personal history of COVID-19; Z98.890 Other specified postprocedural states; Z79.899 Other long term (current) drug therapy; V89.2XXA Person injured in unspecified motor-vehicle accident, traffic, initial encounter
CPT/HCPCS: 23515; 64415; 81025; A9270; J0131; J0690; J1100; J1885; J2250; J2370; J2704; J2795; J3010; J3490; J7120; 00450; J2405